=== PATIENT | female | born 1955 | race African-American/Black ===

== ENCOUNTER 2017-11-01 02:43 | Emergency (ER) | payer MEDICARE, BC, OTHER | END 2017-11-01 04:38 | disposition home or self-care (01) | LOC: FTE 02:43 → E/R 04:38 | DX: R04.0 Epistaxis (principal); I10 Essential (primary) hypertension | CPT/HCPCS: 30903; 99283-25 ==

== ENCOUNTER 2017-11-03 07:49 | Emergency (ER) | payer MEDICARE, BC, OTHER | END 2017-11-03 09:14 | disposition home or self-care (01) | LOC: FTE 07:49 | DX: Z48.00 Encounter for change or removal of nonsurgical wound dressing (principal); I10 Essential (primary) hypertension | CPT/HCPCS: 99281 ==